=== PATIENT | male | born 1960 | race Caucasian/White ===

== ENCOUNTER → 2023-11-01 | Day surgery (SDC) | payer BC ==
[~2023-11-01] MED LIST: Flumazenil 0.1 MG/ML 10 ML MDV ONE; Ketamine 200 MG/20 ML MDV ONE; Midazolam 1 MG/ML 2 ML SDV ONE; Propofol 200 MG/20 ML SDV ONE; fentaNYL 50 MCG/ML SDV ONE
[2023-11-01] MEDS: Lactated Ringers 1,000 ML IV SCH (08:18)
== END ==
LOC: CC.SDS 08:05
PROVIDERS: ATTEND Family Medicine
DX: Z12.11 Encounter for screening for malignant neoplasm of colon (principal); D12.0 Benign neoplasm of cecum; D12.2 Benign neoplasm of ascending colon; D12.3 Benign neoplasm of transverse colon; D12.5 Benign neoplasm of sigmoid colon; K57.30 Diverticulosis of large intestine without perforation or abscess without bleeding; Z86.010 Personal history of colon polyps; I10 Essential (primary) hypertension; F41.9 Anxiety disorder, unspecified; Z79.82 Long term (current) use of aspirin; Z79.899 Other long term (current) drug therapy; Z91.048 Other nonmedicinal substance allergy status
CPT/HCPCS: 00811; 45385; J2250; J2704; J3010; J7120; J3490